=== PATIENT | male | born 1960 | race Caucasian/White ===

== ENCOUNTER 2020-02-28 10:23 | Observation (INO) | payer OTHER, SELFPAY ==
[2020-02-28 11:53] LABS: #Lymphocytes 1.1 thou/uL (1.20-3.40); #Monocytes 0.6 thou/uL (0.11-0.59); #Neutrophils 8.6 thou/uL (1.40-6.50); %Basophils 0.1 % (0.0-1.0); %Eosinophils 0.3 % (0.0-10.0); %Lymphocytes 10.8 % (21.0-51.0); %Monocytes 5.3 % (0.0-10.0); %Neutrophils 83.6 % (42.0-75.0); Hemoglobin 16.2 g/dL (14.0-18.0); Mean Corpuscular HGB CONC 33.7 g/dL (32.0-36.0); Mean Corpuscular Hemoglobin 32.6 pg (27.0-31.0); Mean Corpuscular Volume 96.7 fL (78.0-98.0); Mean Platelet Volume 7.5 fL (7.4-10.4); Platelet Count 235 thou/uL (130-400); RBC Distribution Width 11.8 % (11.5-14.5); Red Blood Cell (RBC) Count 4.96 mill/uL (4.70-6.10); White Blood Cell (WBC) Count 10.3 thou/uL (4.8-10.8)
[2020-02-28 12:17] LABS: ALT (SGPT) 24 U/L (8-55); AST (SGOT) 32 U/L (5-34); Albumin 5.2 g/dL (3.5-5.0); Alkaline Phosphatase 63 U/L (40-110); Anion Gap 14 mmol/L (10-20); BUN (Urea Nitrogen) 16 mg/dL (8.4-25.7); Bilirubin, Total 1.6 mg/dL (0.2-1.2); Calc. Creatinine Clearance 0 mL/min (70-130); Calcium 10.6 mg/dL (7.8-10.44); Carbon Dioxide 29 mmol/L (22-29); Chloride 99 mmol/L (98-107); Estimated GFR-MDRD 73; Glucose 104 mg/dL (70-105); Protein, Total 8.2 g/dL (6.0-8.3); Sodium 138 mmol/L (136-145)
[2020-02-28] MEDS ORDERED: Lorazepam 2 MG/ML VIAL ONE (13:10)
[2020-02-28] MEDS ORDERED: levETIRAcetam 1000 MG/100 ML PREMIX BAG ONE (13:25)
--- NOTE | 2020-02-28 14:14 | CT ---
CT BRAIN NONCONTRAST: DATE: 02/28/2020 HISTORY: 59-year-old male with acute seizure causing fall and acute head trauma FINDINGS: There is no evidence of acute intra-axial or extra-axial hemorrhage. There is no midline shift or any other mass effect. There is no extra-axial fluid collection. There is no evidence of obstructive hydrocephalus. Calvarium is intact. IMPRESSION: No acute intracranial findings.
[2020-02-28 14:27] LABS: CKMB 12.1 ng/mL (0-6.6)
--- NOTE | 2020-02-28 15:44 | RAD ---
PORTABLE CHEST: 02/28/20 at 1:42 p.m. HISTORY: Altered mental status. Seizure. FINDINGS: The heart size is normal. The lungs are expanded without focal areas of consolidation, pneumothoraces , or pleural effusions. IMPRESSION: No acute process. POS: JONATAN
[2020-02-28 16:48] LABS: Troponin I 0.055 ng/mL (< 0.028)
--- NOTE | 2020-02-28 16:54 | CON ---
NEUROLOGY CONSULTATION DATE OF CONSULTATION: 02/28/2020 HISTORY OF PRESENT ILLNESS: Mr. Hdez is a 59-year-old male with medical history significant for seizure disorder, presented to the emergency room with a breakthrough seizure. Per patient, he had no triggers, however, the fiance told in the emergency room that he forgot his Keppra yesterday. 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 He had 4 seizures in total. The last one was 6 months ago and then he had one this morning. The patient is almost back to his baseline. He is followed by a neurologist in [place]. He denies history of head trauma, stroke, meningitis, or encephalitis. He denies history of memory lapses or staring spells. In the emergency room, head CT was done, which did not reveal any acute intracranial findings. - Review of Systems Constitutional: denies: fever, chills, sweats, weakness, malaise, other Eyes: denies: pain, vision change, conjunctivae inflammation, eyelid inflammation, redness, other ENT: denies: ear pain, ear discharge, nose pain, nose discharge, nose congestion , mouth pain, mouth swelling, throat pain, throat swelling Respiratory: denies: cough, dry, shortness of breath, hemoptysis, SOB with excertion, pleuritic pain, sputum, wheezing, other Cardiovascular: denies: chest pain, palpitations, orthopnea, paroxysmal noc. dyspnea, edema, light headedness, other Gastrointestinal: denies: nausea, vomiting, abdominal pain, diarrhea, constipation, melena, hematochezia, other Genitourinary: denies: dysuria, frequency, incontinence, hematuria, retention, other Musculoskeletal: reports: back pain (mild lower back discomfort). denies: neck pain, shoulder pain, arm pain, hand pain, leg pain, foot pain, other Skin: denies: rash, lesions, sophia, bruising, other Neurological: reports: seizures. denies: weakness, numbness, incoordination, change in speech, confusion, other - Medication Medications: ALLERGIES: NKDA CURRENT MEDICATIONS: Keppra oral MonFebruary 28, 2020 10:30 Cervantes RN, Daniel tablet : Strength - 1,000 mg : ORAL Patient Dose: 1000 mg Oral 2 times a day. metoprolol tartrate oral MonFebruary 28, 2020 11:49 Cervantes RN, Daniel tablet : Strength - 100 mg : ORAL Patient Dose: Unknown.Unknown dose or tartrate/succinate. - Past Medical History Source: patient Cardiac: reports: HTN SATELLITE SPECIALIST: reports: Seizure - Past Surgical History Past Surgical History: reports: no pertinent history - Family History Family History: reports: no pertinent history - Social History Smoking Status: Never smoker Alcohol: reports: Occasional (Reports drinking 2 glasses of wine almost daily) Drugs: reports: none Living Situation: With Family Activity level: independent ambulation Physical Exam General Appearance: NAD Eye: PERRL, anicteric sclera ENT: normocephalic atraumatic, no oropharyngeal lesions, moist mucosa Neck: supple, symmetric, no lymphadenopathy Heart: RRR, normal peripheral pulses Respiratory: CTAB, no wheezes, no rales, no ronchi, normal chest expansion Gastrointestinal: soft, non-tender, non-distended, normal bowel sounds, no guarding, no rigidity Extremities: no cyanosis, no edema Skin: normal turgor, no lesions, no rashes Neurological: Mental status; the patient is alert and oriented to person, place, and time. Motor; muscle tone and bulk are normal. Strength 5/5 bilaterally. Cranial nerves; 2 through 12 intact. Reflexes 2+ bilaterally. Gait not tested because of the patient's safety reasons. Cerebellar intact. Sensory intact to light touch. Musculoskeletal: normal tone, normal strength, no muscle wasting Psychiatric: normal affect, normal behavior, A&O x 3 02/28/20 11:43 Lab results: WBC 10.3 thou/uL (4.8-10.8) 02/28/20 11:43 Hgb 16.2 g/dL (14.0-18.0) 02/28/20 11:43 Hct 48.0 % (42.0-52.0) 02/28/20 11:43 MCV 96.7 fL (78.0-98.0) 02/28/20 11:43 Plt Count 235 thou/uL (130-400) 02/28/20 11:43 Neutrophils % 83.6 % (42.0-75.0) H 02/28/20 11:43 Sodium 138 mmol/L (136-145) 02/28/20 11:43 Potassium 4.0 mmol/L (3.5-5.1) 02/28/20 11:43 Chloride 99 mmol/L (98-107) 02/28/20 11:43 Carbon Dioxide 29 mmol/L (22-29) 02/28/20 11:43 BUN 16 mg/dL (8.4-25.7) 02/28/20 11:43 Creatinine 1.04 mg/dL (0.7-1.3) 02/28/20 11:43 Glucose 104 mg/dL (70-105) 02/28/20 11:43 Lactic Acid 1.4 mmol/L (0.5-2.2) 02/28/20 17:08 Calcium 10.6 mg/dL (7.8-10.44) H 02/28/20 11:43 Total Bilirubin 1.6 mg/dL (0.2-1.2) H 02/28/20 11:43 AST 32 U/L (5-34) 02/28/20 11:43 ALT 24 U/L (8-55) 02/28/20 11:43 Alkaline Phosphatase 63 U/L (40-110) 02/28/20 11:43 CK-MB (CK-2) 12.1 ng/mL (0-6.6) H* 02/28/20 13:28 Troponin I 0.055 ng/mL (< 0.028) H 02/28/20 16:11 Serum Total Protein 8.2 g/dL (6.0-8.3) 02/28/20 11:43 Albumin 5.2 g/dL (3.5-5.0) H 02/28/20 11:43 - Radiology Interpretation CT scan - head Status: report reviewed by me DATA REVIEWED: I reviewed the CT scan, which does not reveal any acute intracranial finding. ASSESSMENT AND PLAN: Mr. Shrestha is a 59-year-old male with history significant for seizure disorder, presented with a breakthrough seizure . There is a concern about noncompliance. Since this is second seizure within 1 year, consider increase Keppra to 750 mg twice daily, Observe seizure precautions. Neuro checks every 4 hours. Continue home medications. Continue medical management per primary team. No driving for 3 months from the date of the last seizure per [employer] [place] laws. The patient should be discharged on Keppra 750 mg twice daily and follow up with his neurologist in [place]. Job ID: [id number] MTDD
[2020-02-28 17:40] LABS: Lactic Acid 1.4 mmol/L (0.5-2.2)
[2020-02-28] MEDS ORDERED: Acetaminophen 325 MG TAB PO PRN (17:41)
[2020-02-28] MEDS ORDERED: Acetaminophen 650 MG Suppository PR PRN (17:41)
[2020-02-28] MEDS ORDERED: Sodium Chloride 0.9% 1,000 ML IV SCH (17:45)
--- NOTE | 2020-02-28 17:57 | PDOC.HHP ---
Hospitalist HPI - History of Present Illness Seizure History of Present Illness: Patient reportedly had a seizure today while he was sitting in a chair. He does not recall feeling unwell prior to this episode. States the last thing he remembers is waking up in the hospital. He is completely oriented but still feels drowsy. Reports taking his medications regularly, he is on Keppra. Patient states he drinks 2 glasses of wine a day and denies drinking excessively , but per ED reports he drank more than usual last night according to his fiance , who also states he missed his medication last night. Recently relocated here from [place] and has been under more stress than usual. At present he denies any complaints. States he has felt well in himself in recent days. ED Course: EKG done in the ED showed NSR, HR 98. Labs done showed a Keppra level of 31.4 Lactic acid elevated at 14.2, however repeat was normal. Trop was 0.055, 0.037 CBC showed WCC 10.3, Hgb 16.2, Hct 48, Platelets 235, Neutrophils 83.6% CMP notable for Calcium of 10.6, T. bili 1.6, Albumin 5.2. Otherwise unremarkable. Mg 1.8 CT head showed no acute intracranial findings. He was given 2L of normal saline. Keppra 1000 mg IV and 2 mg of Ativan. Seen by Dr. Kenny who has increased his usual Keppra dose to 750 mg BID. Hospitalist ROS - Review of Systems Constitutional: denies: fever, chills, sweats, weakness, malaise, other Eyes: denies: pain, vision change, conjunctivae inflammation, eyelid inflammation, redness, other ENT: denies: ear pain, ear discharge, nose pain, nose discharge, nose congestion , mouth pain, mouth swelling, throat pain, throat swelling Respiratory: denies: cough, dry, shortness of breath, hemoptysis, SOB with excertion, pleuritic pain, sputum, wheezing, other Cardiovascular: denies: chest pain, palpitations, orthopnea, paroxysmal noc. dyspnea, edema, light headedness, other Gastrointestinal: denies: nausea, vomiting, abdominal pain, diarrhea, constipation, melena, hematochezia, other Genitourinary: denies: dysuria, frequency, incontinence, hematuria, retention, other Musculoskeletal: reports: back pain (mild lower back discomfort). denies: neck pain, shoulder pain, arm pain, hand pain, leg pain, foot pain, other Skin: denies: rash, lesions, sophia, bruising, other Neurological: reports: seizures. denies: weakness, numbness, incoordination, change in speech, confusion, other - Medication Medications: ALLERGIES: NKDA CURRENT MEDICATIONS: Keppra oral MonFebruary 28, 2020 10:30 Cervantes RN, Daniel tablet : Strength - 1,000 mg : ORAL Patient Dose: 1000 mg Oral 2 times a day. metoprolol tartrate oral MonFebruary 28, 2020 11:49 Cervantes RN, Daniel tablet : Strength - 100 mg : ORAL Patient Dose: Unknown.Unknown dose or tartrate/succinate. Hospitalist History - Past Medical History Source: patient Cardiac: reports: HTN RECORDER GRAVITY PROSPECTING: reports: Seizure - Past Surgical History Past Surgical History: reports: no pertinent history - Family History Family History: reports: no pertinent history - Social History Smoking Status: Never smoker Alcohol: reports: Occassional (Reports drinking 2 glasses of wine almost daily) Drugs: reports: none Living Situation: With Family Activity level: independent ambulation - Exam General Appearance: NAD Eye: PERRL, anicteric sclera ENT: normocephalic atraumatic, no oropharyngeal lesions, moist mucosa Neck: supple, symmetric, no lymphadenopathy Heart: RRR, normal peripheral pulses Respiratory: CTAB, no wheezes, no rales, no ronchi, normal chest expansion Gastrointestinal: soft, non-tender, non-distended, normal bowel sounds, no guarding, no rigidity Extremities: no cyanosis, no edema Skin: normal turgor, no lesions, no rashes Neurological: cranial nerve grossly intact, normal sensation to touch, no weakness, no focal deficits Musculoskeletal: normal tone, normal strength, no muscle wasting Psychiatric: normal affect, normal behavior, A&O x 3 Hospitalist Results - Labs Result Diagrams: 02/28/20 11:43 02/28/20 11:43 Lab results: WBC 10.3 thou/uL (4.8-10.8) 02/28/20 11:43 Hgb 16.2 g/dL (14.0-18.0) 02/28/20 11:43 Hct 48.0 % (42.0-52.0) 02/28/20 11:43 MCV 96.7 fL (78.0-98.0) 02/28/20 11:43 Plt Count 235 thou/uL (130-400) 02/28/20 11:43 Neutrophils % 83.6 % (42.0-75.0) H 02/28/20 11:43 Sodium 138 mmol/L (136-145) 02/28/20 11:43 Potassium 4.0 mmol/L (3.5-5.1) 02/28/20 11:43 Chloride 99 mmol/L (98-107) 02/28/20 11:43 Carbon Dioxide 29 mmol/L (22-29) 02/28/20 11:43 BUN 16 mg/dL (8.4-25.7) 02/28/20 11:43 Creatinine 1.04 mg/dL (0.7-1.3) 02/28/20 11:43 Glucose 104 mg/dL (70-105) 02/28/20 11:43 Lactic Acid 1.4 mmol/L (0.5-2.2) 02/28/20 17:08 Calcium 10.6 mg/dL (7.8-10.44) H 02/28/20 11:43 Total Bilirubin 1.6 mg/dL (0.2-1.2) H 02/28/20 11:43 AST 32 U/L (5-34) 02/28/20 11:43 ALT 24 U/L (8-55) 02/28/20 11:43 Alkaline Phosphatase 63 U/L (40-110) 02/28/20 11:43 CK-MB (CK-2) 12.1 ng/mL (0-6.6) H* 02/28/20 13:28 Troponin I 0.055 ng/mL (< 0.028) H 02/28/20 16:11 Serum Total Protein 8.2 g/dL (6.0-8.3) 02/28/20 11:43 Albumin 5.2 g/dL (3.5-5.0) H 02/28/20 11:43 - Radiology Interpretation CT scan - head Status: report reviewed by ne Hospitalist H&P A/P - Problem (1) Breakthrough seizure Code(s): G40.919 - EPILEPSY, UNSP, INTRACTABLE, WITHOUT STATUS EPILEPTICUS Status: Acute (2) Epilepsy Code(s): G40.909 - EPILEPSY, UNSP, NOT INTRACTABLE, WITHOUT STATUS EPILEPTICUS Status: Chronic (3) Elevated bilirubin Code(s): R17 - UNSPECIFIED JAUNDICE Status: Acute (4) Elevated troponin Code(s): R79.89 - OTHER SPECIFIED ABNORMAL FINDINGS OF BLOOD CHEMISTRY Status : Acute (5) Hypertension Code(s): I10 - ESSENTIAL (PRIMARY) HYPERTENSION Status: Chronic (6) Daily consumption of alcohol Code(s): Z78.9 - OTHER SPECIFIED HEALTH STATUS Status: Chronic - Plan Plan: Patient seen by Neuro and advised to remain under observation with neuro checks every 4 hours. Keppra given in ED, and his regular dose increased to 750 mg BID with recommendations to fup with his neurologist in [place]. CT Brain unremarkable. Lactic acid improved. Continue to trend troponins. Monitor BP. Reconcile home meds once verified. ASE protocol initiated and alcohol level to be drawn (reports daily alcohol use) . UA/UCx and UDS. Repeat LFTs in AM. Surrogate decision maker: Clotilde Hernandez, his fiance ([phone])
[2020-02-28] MEDS ORDERED: Lorazepam 2 MG/ML VIAL SLOW IVP PRN (18:08)
[2020-02-28 19:19] VITALS: BMI 22.8
[2020-02-28 19:47] LABS: Troponin I 0.053 ng/mL (< 0.028)
[2020-02-28 20:09] LABS: Thyroid Stimulating Hormone 0.2516 uIU/mL (0.35-4.94)
[2020-02-28] MEDS: Famotidine 20 MG TAB PO SCH (21:14)
[2020-02-28 22:12] LABS: Bacteria/HPF None Seen HPF (None Seen); Bilirubin Negative (Negative); Blood, Urine Negative (Negative); Clarity Clear (Clear); Glucose, Urine (Dipstick) Normal (Negative); Leukocyte Negative Leu/uL (Negative); Mucous/LPF Rare LPF (<2+); Nitrite Negative (Negative); Protein, Urine (Dipstick) 10 mg/dL (Neg-Trace); RBC/HPF 0-3 HPF (0-3); Squamous Epithelial None Seen HPF (0-3); Urobilinogen Normal mg/dL (Less than 2); WBC/HPF 0-3 HPF (0-3)
[2020-02-28 22:14] LABS: Urine Culture Reflex No No
[2020-02-28 22:21] LABS: Amphetamine Not Detected (NotDetected); Barbiturates Screen Not Detected (NotDetected); Benzodiazepine Screen Detected (NotDetected); Cocaine Metabolite Screen Not Detected (NotDetected); Medtox Control Line Valid? VALID (VALID); Medtox Reader # READER 4; Methadone Not Detected (NotDetected); Methamphetamine Not Detected (NotDetected); Opiate Screen Not Detected (NotDetected); Oxycodone Screen Not Detected (NotDetected); Phencyclidine (PCP) Not Detected (NotDetected); THC/Cannabinoid Screen Not Detected (NotDetected); Tricyclic Screen Not Detected (NotDetected)
[2020-02-28 23:31] LABS: CKMB 20.5 ng/mL (0-6.6)
[2020-02-29 04:49] LABS: #Basophils 0.1 thou/uL (0.0-0.2); #Lymphocytes 2.3 thou/uL (1.20-3.40); #Monocytes 0.8 thou/uL (0.11-0.59); #Neutrophils 5.6 thou/uL (1.40-6.50); %Basophils 0.6 % (0.0-1.0); %Eosinophils 0.3 % (0.0-10.0); %Lymphocytes 25.8 % (21.0-51.0); %Monocytes 9.3 % (0.0-10.0); Hemoglobin 13.8 g/dL (14.0-18.0); Mean Corpuscular HGB CONC 33.3 g/dL (32.0-36.0); Mean Corpuscular Hemoglobin 32.5 pg (27.0-31.0); Mean Corpuscular Volume 97.4 fL (78.0-98.0); Mean Platelet Volume 7.8 fL (7.4-10.4); Platelet Count 192 thou/uL (130-400); RBC Distribution Width 11.7 % (11.5-14.5); Red Blood Cell (RBC) Count 4.24 mill/uL (4.70-6.10); White Blood Cell (WBC) Count 8.8 thou/uL (4.8-10.8)
[2020-02-29 05:19] LABS: ALT (SGPT) 16 U/L (8-55); AST (SGOT) 44 U/L (5-34); Albumin 3.8 g/dL (3.5-5.0); Alkaline Phosphatase 47 U/L (40-110); Anion Gap 13 mmol/L (10-20); BUN (Urea Nitrogen) 15 mg/dL (8.4-25.7); Bilirubin, Total 2.5 mg/dL (0.2-1.2); Calc. Creatinine Clearance 104 mL/min (70-130); Calcium 8.6 mg/dL (7.8-10.44); Carbon Dioxide 29 mmol/L (22-29); Chloride 101 mmol/L (98-107); Estimated GFR-MDRD Greater than 90; Globulin 2.2 g/dL (2.4-3.5); Glucose 88 mg/dL (70-105); Sodium 140 mmol/L (136-145)
[2020-02-29 05:33] LABS: CKMB 16.6 ng/mL (0-6.6); Critical Call CKMB RESULT DECREASING
[2020-02-29] MEDS: Famotidine 20 MG TAB PO SCH ×2 (08:22→20:40)
[2020-02-29] MEDS: Potassium Chloride 20 MEQ TAB PO SCH ×2 (08:24→16:39)
[2020-02-29] MEDS ORDERED: levETIRAcetam 500 MG TAB PO SCH ×2 (09:00→11:15)
[2020-02-29] MEDS ORDERED: Magnesium 2 GM/50 ML 2 GM in Premix Bag 1 BAG IVPB SCH (10:45)
[2020-02-29] MEDS ORDERED: Acetaminophen 325 MG TAB PO PRN (11:06)
[2020-02-29] MEDS ORDERED: Cyanocobalamin 1000 MCG/ML VIAL IM SCH (11:15)
--- NOTE | 2020-02-29 12:56 | PRG ---
DATE OF SERVICE: 02/29/2020 SUBJECTIVE: The patient is a 59-year-old male with seizure disorder, was brought in yesterday evening after an episode of seizure. He had another episode of seizure in the emergency room. He currently takes Keppra 1000 mg twice a day. This was clarified with the spouse. His mentation has gradually improved overnight. He is still somewhat slow to respond. No new seizures reported overnight. He denies any double vision, blurring of vision, facial asymmetry, weakness, numbness of any of his extremities. REVIEW OF SYSTEMS: All other review of systems was reviewed and was found negative. PHYSICAL EXAMINATION: VITAL SIGNS: Temperature 98.7, pulse 79, respirations 16, blood pressure 157/78, O2 saturation 97% on room air. GENERAL: A 59-year-old male, in no apparent distress. NECK: Supple. No JVD. No carotid bruit. No neck stiffness. LUNGS: Clear to auscultation bilaterally. No wheezing, rales, or rhonchi. HEART: S1 and S2 present. Regular. ABDOMEN: Soft. Bowel sounds present. No rebound or guarding. EXTREMITIES: No edema or calf tenderness. NEUROLOGIC: Grossly nonfocal. Moves all 4 extremities. Power was 5/5 in all extremities. SKIN: Warm and dry. PSYCHIATRY: Alert, awake, oriented x3. Normal affect. Somewhat slow to respond. LABORATORY FINDINGS: WBC 8.8 with hemoglobin 13.8. Vitamin B12 of 186. Folic acid 12.4. Lactic acid on admission was 14.2, repeat was 1.4, maximum troponin of 0.043. Telemetry monitoring by my review showed sinus rhythm. IMAGING STUDIES: CT scan of the brain was negative for acute findings. Chest x-ray by my review was negative for infiltrate or edema. IMPRESSION: 1. Breakthrough seizure. 2. History of seizure disorder. 3. Abnormal LFTs. Total bilirubin today was 2.5 from 1.6. 4. Lactic acidosis due to seizure. 5. Elevated troponin probably due to seizure activity. 6. Chronic kidney disease, stage 2. 7. Vitamin B12 deficiency. 8. Hypokalemia. 9. Hypertension. PLAN: The patient is probably not safe to be discharged today. Keppra dose will be increased to 1250 b.i.d. I have verified with Neurology, Dr. Kenny. Potassium will be replaced. Toprol-XL will be restarted. We will start vitamin B12 supplementation. We will give him one dose of 1000 mcg of intramuscular vitamin B12. Magnesium will be replaced as well. The patient will be started on IV fluids. We will recheck labs in a.m. Echocardiogram will be ordered. We will continue neuro checks. We will try to make the patient ambulate. The patient was advised to increase the oral intake. No driving until cleared by MD was emphasized. Requesting primary care physician in [facility]. Job ID: [id number]
[2020-02-29] MEDS: 1/2 NS w/KCL 20 mEq 1,000 ML IV SCH ×2 (13:13→22:51)
--- NOTE | 2020-02-29 15:20 | EKG ---
Test Reason : Blood Pressure : / mmHG Vent. Rate : 098 BPM Atrial Rate : 098 BPM P-R Int : 174 ms QRS Dur : 080 ms QT Int : 328 ms P-R-T Axes : 045 -06 -27 degrees QTc Int : 418 ms Normal sinus rhythm Abnormal ECG Confirmed by MATILDE JASMINE DO ([id number]), staff editor MICHAELA DONOHUE ([id number]) on 02/29/2020 3:20:24 PM Referred By: Confirmed By:MATILDE JASMINE DO
[2020-02-29] MEDS: levETIRAcetam 500 MG TAB PO SCH (20:39)
[2020-03-01 04:45] LABS: ALT (SGPT) 16 U/L (8-55); AST (SGOT) 37 U/L (5-34); Albumin 3.5 g/dL (3.5-5.0); Alkaline Phosphatase 56 U/L (40-110); Anion Gap 10 mmol/L (10-20); BUN (Urea Nitrogen) 12 mg/dL (8.4-25.7); Bilirubin, Total 0.6 mg/dL (0.2-1.2); Calc. Creatinine Clearance 109 mL/min (70-130); Calcium 7.9 mg/dL (7.8-10.44); Carbon Dioxide 26 mmol/L (22-29); Chloride 105 mmol/L (98-107); Estimated GFR-MDRD Greater than 90; Globulin 2.1 g/dL (2.4-3.5); Glucose 94 mg/dL (70-105); Potassium 3.4 mmol/L (3.5-5.1); Protein, Total 5.6 g/dL (6.0-8.3); Sodium 138 mmol/L (136-145)
[2020-03-01] MEDS: 1/2 NS w/KCL 20 mEq 1,000 ML IV SCH (06:21)
[2020-03-01 07:27] VITALS: BP 130/70; TEMP 97.7
[2020-03-01] MEDS ORDERED: Potassium Chloride 20 MEQ TAB PO SCH (08:15)
[2020-03-01] MEDS: levETIRAcetam 500 MG TAB PO SCH (08:27)
[2020-03-01] MEDS: Famotidine 20 MG TAB PO SCH (08:27)
[2020-03-01] MEDS ORDERED: Multivit, Therapeutic 1 TAB PO SCH (09:00)
[2020-03-01] MEDS ORDERED: Cyanocobalamin (Vitamin B-12) 1,000 MCG TAB PO SCH (09:00)
--- NOTE | 2020-03-01 13:59 | DIS ---
DATE OF ADMISSION: 02/28/2020 DATE OF DISCHARGE: 03/01/2020 DISCHARGE DISPOSITION: Home. FOLLOWUP: The patient will follow up with Dr. Hilton Duran as a new primary care physician. The patient was advised to follow up with Dr. Caleb Kumar. DIAGNOSTIC TESTS: CT scan of the brain was negative for acute findings. Echocardiogram showed left ventricular ejection fraction of 55% to 60% with diastolic dysfunction, mild mitral regurgitation, mild tricuspid regurgitation. Vitamin B12 of 186. TSH was 0.25. Folic acid was 12.4. Prolactin was 15. Potassium was 3.0. Lactic acid on admission 14.2. Total bilirubin maximum was 2.5, at discharge was 0.6. CK-MB maximum was 20.5, repeat was 16.6. INPATIENT TIRE RECAPPER: Neurology, Dr. Kenny. The patient was seen on the day of discharge. Denies any new complaints. No chest pain, shortness of breath, palpitations, nausea, vomiting, or focal deficit reported. BRIEF HOSPITAL COURSE: The patient is a 59-year-old male with seizure disorder, presented to the hospital after an episode of seizure. He currently takes Keppra 1000 mg b.i.d. He was monitored in the telemetry unit. He was evaluated by Neurology, Dr. Kenny. CT scan of the brain was negative. His Keppra dose was increased to 1250 mg b.i.d. per Neurology's recommendation. He also had electrolyte abnormalities, which were replaced. He was found to have vitamin B12 deficiency and received 1 dose of intramuscular 1000 mcg vitamin B12, followed by vitamin B12 of 1000 mcg daily. He was placed on IV fluid that has been discontinued at discharge. He also had abnormal LFTs with total bilirubin of 2.5 that improved to 0.6 at discharge. He appears stable for discharge. FINAL DIAGNOSES: 1. Breakthrough seizure. 2. History of seizure disorder. 3. Abnormal LFTs, probably secondary to above. 4. Lactic acidosis secondary to above. 5. Elevated troponins, probably secondary to seizure activity, questionable type 2 myocardial infarction. 6. Chronic kidney disease, stage 2. 7. Vitamin B12 deficiency. 8. Hypokalemia, replaced. 9. Hypertension. 10. Encephalopathy secondary to seizure. 11. History of alcohol use. DISCHARGE INSTRUCTIONS: The patient was extensively counseled on seizure precautions including no driving until cleared by MD. The plan was discussed with the patient and the family in detail. Job ID: [id number]
== END 2020-03-01 11:08 | disposition home or self-care (01) ==
LOC: EDBD 10:23 → ERS 10:23 → 2NO 18:46
PROVIDERS: ADMIT Psychiatry & Neurology Neurology; ATTEND Psychiatry & Neurology Neurology
DX: G40.919 Epilepsy, unspecified, intractable, without status epilepticus (principal); E87.2 Acidosis; G93.49 Other encephalopathy; R17 Unspecified jaundice; R79.89 Other specified abnormal findings of blood chemistry; I12.9 Hypertensive chronic kidney disease with stage 1 through stage 4 chronic kidney disease, or unspecified chronic kidney disease; N18.2 Chronic kidney disease, stage 2 (mild); E53.8 Deficiency of other specified B group vitamins; E87.6 Hypokalemia; Z79.899 Other long term (current) drug therapy
CPT/HCPCS: 36415; 70450; 71045; 80053; 80177; 80306; 80307; 81001; 82553; 82607; 82746; 83605; 83735; 84146; 84443; 84484; 85025; 93005; 93306; 96361; 96365; 96366; 96367; 96372; 96375; G0378; J1953; J2060; J3420; J3475; J3480

== ENCOUNTER 2021-09-17 09:09 | Outpatient (CLI) | payer OTHER | END 2021-09-17 09:10 | disposition home or self-care (01) | LOC: BICMAMMO 09:09 | PROVIDERS: ATTEND Family Medicine | DX: Z13.820 Encounter for screening for osteoporosis (principal); M85.89 Other specified disorders of bone density and structure, multiple sites | CPT/HCPCS: 77080 ==

== ENCOUNTER 2024-11-01 08:10 | Outpatient (CLI) | payer BC | END 2024-11-01 08:11 | disposition home or self-care (01) | LOC: BICMAMMO 08:10 | PROVIDERS: ATTEND Family Medicine | DX: M85.89 Other specified disorders of bone density and structure, multiple sites (principal) | CPT/HCPCS: 77080 ==